=== PATIENT | male | born 1950 | race Caucasian/White ===

== ENCOUNTER 2019-02-12 12:30 | Inpatient (IN) | payer OTHER ==
[~2019-02-12] VITALS: Ht 165.1 cm; Wt 89.8 kg
[2019-02-12] MEDS ORDERED: HYDROCHLOROTH12.5 MG PO (16:43)
== END 2019-02-16 16:20 | disposition home or self-care (01) | DRG 470 ==
LOC: EDSTATUS 12:30 → ADM 12:30 → O/R 02-14 05:09 → SURH 02-14 05:09 → EDBD 02-14 12:30 → SURH 02-14 12:30
PROVIDERS: ADMIT Orthopaedic Surgery
PROC: 0SRC0JZ Replacement of Right Knee Joint with Synthetic Substitute, Open Approach (ICD-10-PCS; principal; 2019-02-14 09:30)
DX: M17.11 Unilateral primary osteoarthritis, right knee (principal)